=== PATIENT | female | born 1980 | race Hispanic/Latino ===

== ENCOUNTER 2021-09-22 22:44 | Emergency (ER) | payer OTHER ==
[~2021-09-22] VITALS: Ht 162.6 cm; Wt 96.6 kg
[2021-09-22] MEDS ORDERED: METHOCARBAMOL 750 MG TAB PO ONE (23:00)
[2021-09-22] MEDS ORDERED: KETOROLAC TROMETHAMINE 60 MG/2 ML VIAL IM ONE (23:00)
[2021-09-22] MEDS ORDERED: METHOCARBAMOL750 MG PO (23:01)
[2021-09-22] MEDS ORDERED: GABAPENTIN300 MG PO (23:01)
[2021-09-22] MEDS ORDERED: KETOROLAC TROMETHAMINE 30 MG/ML VIAL ONE (23:09)
== END 2021-09-22 23:45 | disposition home or self-care (01) ==
LOC: ER 23:26
DX: M54.42 Lumbago with sciatica, left side (principal); M54.41 Lumbago with sciatica, right side
CPT/HCPCS: 99283; J1885